=== PATIENT | male | born 1990 | race Hispanic/Latino ===

== ENCOUNTER 2025-07-30 15:19 | Emergency (ER) | payer OTHER ==
[~2025-07-30] VITALS: Ht 175.3 cm; Wt 97.5 kg
[2025-07-30] MEDS ORDERED: SODIUM BICARB 8.4% 50ML SYRINGE IVP ONE (15:20)
[2025-07-30] MEDS ORDERED: CACL 1GM SYG IVP ONE (15:20)
[2025-07-30] MEDS ORDERED: SODIUM BICARB 50MEQ 50ML VIAL 50 ML ONE (15:37)
[2025-07-30 15:50] VITALS: PULSE 0
--- NOTE | 2025-07-30 16:00 | NUR ---
PERFORMED POST MORTEM CARE.
[2025-07-30] MEDS: 0.9%NACL 1000ML 1,000 ML IV ONE (16:05)
[2025-07-30 16:06] VITALS: BP 0/0
[2025-07-30] MEDS: NOREPINEPHRIN 4MG/NS 250ML 250 ML IV SCH (16:06)
--- NOTE | 2025-07-30 16:07 | NUR ---
SPOKE TO EDGAR GRIFFITH WITH [facility] IN REGARDS TO PT. .
--- NOTE | 2025-07-30 16:07 | NUR ---
REFER TO CODE BLUE SHEET FOR FURTHER DOCUMENTATION ON PTS ARREST.
--- NOTE | 2025-07-30 16:18 | ERN ---
General Chief Complaint: CPR/Full Arrest Stated Complaint: CPR Time Seen by MD: 15:50 Source: patient History of Present Illness Initial Comments Patient was brought in by EMS secondary to patient being in cardiac arrest. Per EMS patient was found unresponsive in the side of the road. Allergies: Coded Allergies: No Known Drug Allergies (Unverified Allergy, Unknown, 07/30/25) Past Medical History Past Medical History: No Pertinent History Past Surgical History: Unknown ROS Dictation Unable to perform due to being in cardiac arrest Physical Exam Physical Exam Dictation Unable to perform due being cardiac arrest Results Laboratory and Microbiology Labs Reviewed?: Yes MDM MDM: Differential diagnosis: Cardiac arrest, Rationale: Tests considered and ordered secondary to shared decision making include: Patient is a 35-year-old male brought in by EMS in cardiac arrest. EMS has a initiated CPR with the three doses of epinephrine lost was not obtained. Five doses of epinephrine and ongoing CPR was carried out five doses did not result in any response. CPR was stopped ED Course Orders Procedure Category Date Status Time Sodium Bicarb 50meq PHA 07/30/25 Complete 50ml Vial (Sodium Bi 15:37 Chest 1vw RAD 07/30/25 Taken 15:56 Norepinephrin 4mg/Ns PHA 07/30/25 In Process 250ml (Levophed 4mg 16:00 0.9%Nacl 1000ml (Ns PHA 07/30/25 Complete 1000ml) 16:00 Current Medications Medications (Trade) Dose Ordered Sig/Clemencia Route PRN Reason Start Time Stop Time Status Last Admin Dose Admin Norepinephrine 250 ml @ 0 mls/hr PROTOCOL IV 07/30/25 16:00 08/29/25 15:59 07/30/25 16:06 Sodium Bicarbonate 50 ml @ As Directed STK-MED ONCE .ROUTE 07/30/25 15:37 07/30/25 15:37 DC Sodium Chloride 1,000 ml @ 0 mls/hr ONCE ONCE IV 07/30/25 16:00 07/30/25 16:01 DC 07/30/25 16:05 Vital Signs Date Time Temp Pulse Resp B/P (MAP) Pulse Ox O2 Delivery O2 Flow Rate FiO2 07/30/25 16:06 0/0 07/30/25 15:50 0 0/0 BVM DX & DISP Disposition: Departure Impression: Primary Impression: Cardiac arrest Condition: Referrals: SELF,REFERRAL (PCP) Time of Disposition: 16:18 FREDERICK CSATANO MD Jul 30, 2025 16:18
--- NOTE | 2025-07-30 16:20 | NUR ---
PTS FAMILY AT BEDSIDE WITH PT, ONCE FINISHED; PT WILL BE TAKEN TO [facility].
--- NOTE | 2025-07-30 17:24 | HMCIMG ---
EXAM: XR Chest, 1 View. CLINICAL HISTORY: CPR. COMPARISON: None provided. FINDINGS: LUNGS: The lungs are clear. No consolidation. Mild pulmonary vascular congestion. PLEURAL SPACES: No pleural effusion or pneumothorax. HEART: Mild cardiomegaly. BONES: No acute osseous abnormality. LIMITATIONS/ARTIFACTS: Poor inspiratory effort. IMPRESSION: 1. Mild pulmonary vascular congestion. /[place]
== END 2025-07-30 16:48 ==
LOC: EDH 15:19 → EDBD 15:19 → EDH 16:48
DX: I46.9 Cardiac arrest, cause unspecified (principal)
CPT/HCPCS: 99285; 92950; 31500; 71045; 82948; J2312; J3490 ×3; J0169; 96360